=== PATIENT | male | born 1945 | race Caucasian/White ===

== ENCOUNTER 2022-04-22 14:12 | Observation (INO) | payer MEDICARE, SELFPAY ==
[2022-04-22] VITALS (21 sets, daily range): BP systolic 69–126; BP diastolic 42–90; PULSE 46–73; RESP 10–21; TEMP 36.3–36.4; O2SAT 87–99; BMI 33.2
--- NOTE | 2022-04-22 14:19 | W.ED.COVID ---
HPI - COVID General: Chief Complaint: Shortness of Breath/Dyspnea Stated Complaint: RESPIRATORY DISTRESS/ COVID + Time Seen by Provider: 04/22/22 14:19 Source: patient Mode of arrival: ambulatory Limitations: no limitations Triage information: Has fever, cough or shortness of breath. Exposure to COVID + person last 14 days History of Present Illness: 76 yo male with complaints of dyspnea, recently tested positive at assisted living for COVID-19. He had a positive antigen test yesterday or unsure of exactly when his symptoms started EMS reports that on arrival there they had noted he had an O2 sat of 87% and moderately altered mental status. He is lethargic as well. He is bradycardic they did give him 0.5 of atropine did increase his heart rate and only minimal increase in blood pressure patient is poorly responsive and cannot really give much further history beyond what EMS gave us. complaint: known COVID positive COVID 19 common symptoms: positive fever(s), chills, cough, dyspnea, fatigue and body aches COVID Results: SARS-CoV-2 (PCR) Detected (NOT DETECT) A 04/22/22 14:46 Coronavirus Type 229E (PCR) Not detected (NOT DETECT) 04/22/22 14:46 Review of Systems General: Reports: ROS unobtainable due to medical condition (Limited mostly from EMS and [facility] staff) Const: Reports: fever(s), chills, body aches and fatigue Resp: Reports: dyspnea [facility] ED PFSH: Medical History Atrial fibrillation CAD (coronary artery disease) CHF (congestive heart failure) Chronic migraine COPD (chronic obstructive pulmonary disease) oxygen dependent Dementia with behavioral disturbance HTN (hypertension) Hyperlipidemia Surgical History S/P ablation of atrial fibrillation S/P coronary angioplasty Social History Smoking and tobacco status: never smoked Physical Exam HENMT: COMMON NORMALS: normocephalic and atraumatic HEAD & SCALP: normocephalic and atraumatic Resp: COMMON NORMALS: No retractions AUSCULTATION: rales and wheezes Cardio: COMMON NORMALS: No murmurs present (Cardio) RATE: bradycardic RHYTHM: abnormal rhythm irregularly irregular GI: COMMON NORMALS: Soft to palpation and No hepatosplenomegaly present AUSCULTATION: Yes normoactive bowel sounds PALPATION: Yes Soft to palpation, No Tenderness to palpation present (GI), No Guarding due to palpation present (GI) and Yes No hepatosplenomegaly present Extremity: COMMON NORMALS: normal to inspection, capillary refill normal, no clubbing, cyanosis or edema, no calf tenderness and no pedal edema Skin: COMMON NORMALS: no rashes or lesions noted GENERAL SKIN EXAM: no rashes or lesions noted Course Vital Signs: Vital signs: Vital Signs Temperature 97.6 F 04/23/22 08:00 Pulse Rate 70 04/23/22 08:00 Respiratory Rate 18 04/23/22 08:00 Blood Pressure 102/68 04/23/22 08:00 Pulse Oximetry 95 04/23/22 08:00 Oxygen Delivery Me thod 04/23/22 08:00 Oxygen Flow Rate 2 04/23/22 07:48 MDM - COVID Medical Decision Making Hypotensive bradycardic. Patient does have COVID requiring oxygen support. He will require close monitoring in hospital setting for oxygen support start remdesivir and dexamethasone discussed with hospitalist orders written Lab Data : 04/22/22 15:55 04/23/22 04:20 Radiology Impressions Chest X-Ray 04/22/22 14:28 IMPRESSION: No acute findings. Laboratory Results WBC 9.6 10^3/uL (4.0-10.0) 04/22/22 15:55 RBC 4.08 10^6/uL (4.1-5.3) L 04/22/22 15:55 Hgb 12.9 g/dL (11.7-16.6) 04/22/22 15:55 Hct 41.7 % (42.0-52.0) L 04/22/22 15:55 MCV 102.2 fl (80-94) H 04/22/22 15:55 MCH 31.6 pg (28.0-34.0) 04/22/22 15:55 MCHC 30.9 g/dL (30.0-36.0) 04/22/22 15:55 RDW 14.2 % (12.1-15.1) 04/22/22 15:55 Plt Count 184 10^3/cmm (130-400) 04/22/22 15:55 MPV 9.5 fL (7.4-10.4) 04/22/22 15:55 Neut % (Auto) 54.0 % 04/22/22 15:55 Lymph % (Auto) 18.3 % 04/22/22 15:55 [place] % (Auto) 25.0 % 04/22/22 15:55 Eos % (Auto) 1.6 % 04/22/22 15:55 Baso % (Auto) 0.4 % 04/22/22 15:55 Neut # (Auto) 5.15 10^3/uL (1.8-7.7) 04/22/22 15:55 Lymph # (Auto) 1.8 10^3/uL (0.8-4.8) 04/22/22 15:55 [place] # (Auto) 2.4 10^3/uL (0.2-0.9) H 04/22/22 15:55 Eos # (Auto) 0.2 10^3/uL (0.0-0.8) 04/22/22 15:55 Baso # (Auto) 0.0 10^3/uL (0.0-0.1) 04/22/22 15:55 Nucleated RBC % (auto) 0 % 04/22/22 15:55 Nucleated RBCs # 0.0 /100WBC 04/22/22 15:55 D-Dimer 2.16 ug/mIFEU (0-0.59) H 04/22/22 15:55 Specimen Type Arterial 04/22/22 14:34 Sample Site Brachial, left 04/22/22 14:34 ABG pH 7.34 (7.35-7.45) L 04/22/22 14:34 ABG pCO2 51.4 mmHg (35-45) H 04/22/22 14:34 ABG pO2 75.5 mmHg (80.0-100.0) L 04/22/22 14:34 ABG HCO3 27.8 mmol/L (22-26) H 04/22/22 14:34 ABG Base Excess 1.2 mmol/L (-2.0-2.0) 04/22/22 14:34 Dominik Test Pos 04/22/22 14:34 Hematocrit 40.0 % (42-52) L 04/22/22 14:34 O2 Delivery Device Nc 04/22/22 14:34 O2 Liters/Min 2.0 % 04/22/22 14:34 FiO2 28.0 % 04/22/22 14:34 Can Striper ID Bd 04/22/22 14:34 Sodium 139 mmol/L (136-145) 04/22/22 15:55 Potassium 4.3 mmol/L (3.5-5.1) 04/22/22 15:55 Chloride 103 mmol/L (98-107) 04/22/22 15:55 Carbon Dioxide 27 mmol/L (22-29) 04/22/22 15:55 Anion Gap 13.3 (5-19) 04/22/22 15:55 BUN 18 mg/dL (8-23) 04/22/22 15:55 Creatinine 2.1 mg/dL (0.7-1.2) H 04/22/22 15:55 GFR Calculation Not Reportable 04/22/22 15:55 Glucose 113 mg/dL (65-115) 04/22/22 15:55 Calculated Osmolality 291 mOsm/kg (285-295) 04/22/22 15:55 Lactic Acid 1.6 mmol/L (0.5-2.2) 04/22/22 15:55 Calcium 8.0 mg/dL (8.5-10.5) L 04/22/22 15:55 Total Bilirubin 0.4 mg/dL (0.15-1.2) 04/22/22 15:55 AST 15 U/L (0-40) 04/22/22 15:55 ALT 8 U/L (0-41) 04/22/22 15:55 Alkaline Phosphatase 149 U/L (40-130) H 04/22/22 15:55 Troponin T Baseline 28 ng/L (0-15) H 04/22/22 15:24 NT-Pro-B Natriuret Pep 159 pg/mL (0-450) 04/22/22 15:55 Total Protein 6.8 g/dL (6.6-8.7) 04/22/22 15:55 Albumin 3.3 g/dL (3.5-5.2) L 04/22/22 15:55 Globulin 3.5 g/dL (1.3-4.6) 04/22/22 15:55 Coronavirus 229E (PCR) Not detected (NOT DETECT) 04/22/22 14:46 SARS-CoV-2 (PCR) Detected (NOT DETECT) A 04/22/22 14:46 SARS-CoV-2 (PCR) Detected (NOT DETECT) A 04/22/22 14:46 Coronavirus Type 229E (PCR) Not detected (NOT DETECT) 04/22/22 14:46 Discharge Plan Discharge Patient Disposition: Admitted As Inpatient Admit Provider: Eric Nelson Clinical Impression: COVID, Dementia, COPD (chronic obstructive pulmonary disease), Hypotension, Bradycardia Condition: Stable Coding Level of Care Code ED Pattern Illustrator for Kenna Edge
--- NOTE | 2022-04-22 14:28 | XRR_ITS ---
PROCEDURE INFORMATION: Exam: XR Chest Exam date and time: 04/22/2022 2:49 PM Age: 76 years old Clinical indication: Dyspnea; Additional info: Dysonea/hypoxia TECHNIQUE: Imaging protocol: Radiologic exam of the chest. Views: 1 view. COMPARISON: No relevant prior studies available. FINDINGS: Lungs: Unremarkable. No consolidation. Pleural spaces: Unremarkable. No pleural effusion. No pneumothorax. Heart/Mediastinum: Unremarkable. No cardiomegaly. Bones/joints: Unremarkable. XR/XR chest 1V portable [id number] IMPRESSION: No acute findings.
--- NOTE | 2022-04-22 14:29 | ECG_ITS ---
[facility] Test Date: 2022-04-22 Pat Name: Juan Persaud Department: Room: Gender: Male Hand Spring Former: : 1945 Requested By: Trevon Santamaria Order Number: [id number] Wilfrid MD: Saray Escobar M.D. Measurements Intervals [place] Rate: 50 P: 36 GA: 189 QRS: -3 QRSD: 105 T: 29 QT: 465 QTc: 427 Interpretive Statements SINUS BRADYCARDIA LOW QRS VOLTAGE IN PRECORDIAL LEADS [QRS DEFLECTION < 1.0 mV IN CHEST LEADS] POSSIBLE ANTERIOR MYOCARDIAL INFARCTION , PROBABLY OLD [30 ms Q WAVE IN V3/V4, OR R < 0.2 mV IN V4] No previous ECG available for comparison Electronically Signed On 04-22-2022 17:52:28 CDT by Saray Escobar M.D. [id number]
[2022-04-22 14:45] LABS: ABG PCO2 51.4 mmHg (35-45); ABG PH Result 7.34 (7.35-7.45); Base Excess ABG 1.2 mmol/L (-2.0-2.0); Blood Gas Allen Test Pos; Blood Gas Operator Identificat BD; Blood Gas Sample Site Brachial, left; Blood Gas Sample Type Arterial; HCO3 ABG 27.8 mmol/L (22-26); Oxygen Device NC; PO2 ABG 75.5 mmHg (80.0-100.0)
[2022-04-22] MEDS: sodium chloride 0.9% 1,000 ML 999 ML IV (14:47)
[2022-04-22] MEDS: albuterol 8 gm MDI 2 PUFF INHALATION (14:51)
[2022-04-22 16:03] LABS: Troponin(5th) Baseline 28 ng/L (0-15)
[2022-04-22 16:07] LABS: Basophils % 0.4 %; Eosinophils # 0.2 10^3/uL (0.0-0.8); Eosinophils % 1.6 %; Hematocrit 41.7 % (42.0-52.0); Hemoglobin 12.9 g/dL (11.7-16.6); Lymphocytes # 1.8 10^3/uL (0.8-4.8); Lymphocytes % 18.3 %; Mean Corpuscular HGB Conc 30.9 g/dL (30.0-36.0); Mean Corpuscular Hemoglobin 31.6 pg (28.0-34.0); Mean Corpuscular Volume 102.2 fl (80-94); Mean Platelet Volume 9.5 fL (7.4-10.4); Monocytes # 2.4 10^3/uL (0.2-0.9); Neutrophils # 5.15 10^3/uL (1.8-7.7); Nucleated Red Blood Cells % 0 %; Platelet Count 184 10^3/cmm (130-400); Red Blood Count 4.08 10^6/uL (4.1-5.3); Red Cell Distribution Width 14.2 % (12.1-15.1); White Blood Count 9.6 10^3/uL (4.0-10.0)
[2022-04-22 16:21] LABS: D Dimer 2.16 ug/mIFEU (0-0.59)
[2022-04-22 16:24] LABS: Lactic Sepsis W/Reflex 1.6 mmol/L (0.5-2.2)
--- NOTE | 2022-04-22 16:29 | ECG_ITS ---
[facility] Test Date: 2022-04-22 Pat Name: Juan Persaud Department: Room: Gender: Male Cutting Inspector: : 1945 Requested By: Trevon Santamaria Order Number: [id number] Wilfrid MD: Saray Escobar M.D. Measurements Intervals [place] Rate: 50 P: 56 TN: 186 QRS: 6 QRSD: 102 T: 30 QT: 465 QTc: 425 Interpretive Statements SINUS BRADYCARDIA LOW QRS VOLTAGE [QRS DEFLECTION < 0.5/1.0 mV IN LIMB/CHEST LEADS] Compared to ECG 04/22/2022 14:37:59 Myocardial infarct finding no longer present Electronically Signed On 04-22-2022 18:14:12 CDT by Saray Escobar M.D. [id number]
[2022-04-22 16:39] LABS: Alanine Aminotransferase 8 U/L (0-41); Albumin Level 3.3 g/dL (3.5-5.2); Alkaline Phosphatase 149 U/L (40-130); Anion Gap 13.3 (5-19); Aspartate Amino Transferase 15 U/L (0-40); Blood Urea Nitrogen 18 mg/dL (8-23); Carbon Dioxide 27 mmol/L (22-29); Chloride 103 mmol/L (98-107); Globulin 3.5 g/dL (1.3-4.6); Glucose 113 mg/dL (65-115); NT Pro B Type Natriuretic Pept 159 pg/mL (0-450); Osmolality Calculated 291 mOsm/kg (285-295); Potassium 4.3 mmol/L (3.5-5.1); Sodium 139 mmol/L (136-145); Total Bilirubin 0.4 mg/dL (0.15-1.2); Total Protein 6.8 g/dL (6.6-8.7)
[2022-04-22 16:40] LABS: Adenovirus Not Detected (NOT DETECT); Chlamydia Pneumoniae Not Detected (NOT DETECT); Coronavirus 229E,HKU1,NL63,OC4 Not Detected (NOT DETECT); Human Metapneumovirus Not Detected (NOT DETECT); Human Rhinovirus/Enterovirus Not Detected (NOT DETECT); Influenza A Not Detected (NOT DETECT); Influenza A H1 Not Detected (NOT DETECT); Influenza A H1-2009 Not Detected (NOT DETECT); Influenza A H3 Not Detected (NOT DETECT); Influenza B Not Detected (NOT DETECT); Mycoplasma Pneumoniae Not Detected (NOT DETECT); Parainfluenza Virus Type 1 Not Detected (NOT DETECT); Parainfluenza Virus Type 2 Not Detected (NOT DETECT); Parainfluenza Virus Type 3 Not Detected (NOT DETECT); Parainfluenza Virus Type 4 Not Detected (NOT DETECT); Respiratory Syncytial Virus A Not Detected (NOT DETECT); Respiratory Syncytial Virus B Not Detected (NOT DETECT); SARS-COV-2 Detected (NOT DETECT)
[2022-04-22] MEDS: dexamethasone 10 mg/mL INJ 6 MG IVP (16:56)
[2022-04-22] MEDS: sodium chloride 0.9% 500 ML 999 ML IV (16:56)
[2022-04-22] MEDS: remdesivir 200 MG in sodium chloride 0.9% (100 ml) 60 ML 100 MG IV (17:56)
--- NOTE | 2022-04-22 18:28 | P.HP_ITS ---
Providers/Chief Complaint Admitting Physician: Omar Primary Care Provider: Ximena Wagner MD Chief Complaint: RESPIRATORY DISTRESS/ COVID + History of Present Illness Juan Persaud is a 76 year old male patient presents from [facility]. He is unable to give me a history. Per the transfer report patient was slow to respond with a blood pressure of 100/70 and change in cognitive status. Patient has a history of hypertension hyperlipidemia, migraine, CAD status post CABG, COPD oxygen dependent, heart failure, hypokalemia, major depression, dementia with behavioral disturbance. Presents from [facility]. [facility] also performed a COVID test which was positive on 04/19/2022. He was managed as an outpatient for the last few days, until today with the hypotension and change in mental status. Review of Systems General: Reports: ROS unobtainable due to mental status Medications/Allergies Home Medications Medication Instructions Recorded Confirmed Last Taken Type acetaminophen 500 mg tablet 500 mg PO Q6H PRN Pain 07/23/20 04/22/22 Unknown History (Tylenol Extra Strength) amlodipine 10 mg tablet 10 mg PO DAILY 07/23/20 04/22/22 04/21/22 History aspirin 81 mg tablet,delayed 81 mg PO DAILY 07/23/20 04/22/22 04/21/22 History release (Adult Low Dose Aspirin) carvedilol 12.5 mg tablet 18.75 mg PO BID #270 tabs 07/23/20 04/22/22 04/21/22 Rx escitalopram oxalate 10 mg tablet 10 mg PO DAILY 07/23/20 04/22/22 04/21/22 History folic acid 1 mg tablet 2 mg PO DAILY 07/23/20 04/22/22 04/21/22 History furosemide 40 mg tablet 40 mg PO DAILY #90 tabs 07/23/20 04/22/22 04/21/22 Rx ipratropium 0.5 mg-albuterol 3 mg 3 ml inhalation Q6H PRN Shortness 07/23/20 04/22/22 04/21/22 History (2.5 mg base)/3 mL nebulization Of Breath soln lisinopril 20 mg tablet 20 mg PO DAILY 07/23/20 04/22/22 04/21/22 History loratadine 10 mg tablet (Allergy 10 mg PO DAILY 11/04/22/22 04/21/22 History Relief (loratadine)) memantine 5 mg tablet 5 mg PO QAM 07/23/20 04/22/22 04/21/22 History potassium chloride 20 mEq 20 meq PO DAILY #90 tabs 07/23/20 04/22/22 04/21/22 Rx tablet,extended release risperidone 0.25 mg tablet 0.25 mg PO BID 07/23/20 04/22/22 04/21/22 History atorvastatin 40 mg tablet 40 mg PO DAILY 11/28/21 04/22/22 04/21/22 History budesonide-formoterol HFA 80 2 puff inhalation Q12H 11/28/21 04/22/22 04/21/22 History mcg-4.5 mcg/actuation aerosol inhaler (Symbicort) cyclobenzaprine 10 mg tablet 10 mg PO TID 11/28/21 04/22/22 04/21/22 History diclofenac sodium 1 % topical gel 2 g topical QID PRN Pain 11/28/21 04/22/22 Unknown History (Arthritis Pain (diclofenac)) tamsulosin 0.4 mg capsule 0.4 mg PO DAILY 11/28/21 04/22/22 04/21/22 History tramadol 50 mg tablet 50 mg PO BID PRN Pain 11/28/21 04/22/22 Unknown History albuterol sulfate 90 mcg/actuation 1 puff inhalation QID PRN 04/22/22 04/22/22 Unknown History aerosol inhaler Shortness Of Breath donepezil 10 mg tablet 10 mg PO DAILY 04/22/22 04/22/22 04/21/22 History Allergies Allergy/AdvReac Type Severity Reaction Status Date / Time Tetanus Vaccines and Toxoid Allergy Unknown Unknown Verified 04/22/22 15:09 PFSH Acute PFSH: Medical History (Updated 04/22/22 @ 18:50 by Eric Nelson DO) Atrial fibrillation CAD (coronary artery disease) CHF (congestive heart failure) Chronic migraine COPD (chronic obstructive pulmonary disease) oxygen dependent Dementia with behavioral disturbance HTN (hypertension) Hyperlipidemia Surgical History S/P ablation of atrial fibrillation S/P coronary angioplasty Social History Smoking and tobacco status: never smoked Vitals/I&O/Wt Last Vital Signs Pulse 59 L 04/22/22 18:00 Resp 18 04/22/22 18:00 BP 126/90 04/22/22 18:00 Pulse Ox 93 04/22/22 18:00 O2 Del Method 04/22/22 14:57 O2 Flow Rate 2 04/22/22 14:57 04/22/22 04/22/22 04/22/22 06:59 14:59 22:59 Intake Total 1100 / 1100 Balance 1100 / 1100 Weight last 48 hrs Weight 111.13 kg Physical Exam Narrative: Patient seen in the ED. He had scooted down on the bed with his legs hanging off. I did help him with his repositioning. He appears in no ac [place] distress. He appears elderly and acutely ill. HENMT: COMMON NORMALS: normocephalic, moist oral mucous membranes and oropharynx normal Eye: GENERAL EYE: appearance normal, both eyes and all related structures Lymph: OTHER: No lymphadenopathy noted Chest: CHEST: Yes Symmetrical chest wall rise Resp: COMMON NORMALS: normal respiratory effort and No use of accessory muscles OTHER: Diminished breath sounds throughout. No wheezes rales or rhonchi Cardio: OTHER: Heart regular rate and rhythm normal S1-S2 without murmurs clicks gallops or rubs GI: OTHER: Abdomen soft nontender nondistended positive bowel sounds no hepatosplenomegaly Back/Pelvis: OTHER: No significant scoliosis. No CVA tenderness. Extremity: NARRATIVE EXTREMITY EXAM: Mild bilateral pedal edema. No edema above the ankles. Neuro: OTHER: Patient is alert. He is not oriented to time he does know where he is. And he knows his name. He does not know why he is here. Patient moves all extremities, he is nonfocal. Psych: OTHER: Patient is calm, will follow directions. Attention and concentration are diminished Skin: NARRATIVE SKIN EXAM: No rashes or lesions noted Data : 04/22/22 15:55 04/22/22 15:55 Micro: Microbiology 04/22/22 15:45 Blood Culture - Preliminary Blood SPECIMEN COLLECTED 04/22/22 15:20 Blood Culture - Preliminary Blood SPECIMEN COLLECTED CXR: My impression: Lungs clear without infiltrate Radiologist's impression: FINDINGS: Lungs: Unremarkable. No consolidation. Pleural spaces: Unremarkable. No pleural effusion. No pneumothorax. Heart/Mediastinum: Unremarkable. No cardiomegaly. Bones/joints: Unremarkable. EKG 1: My Interpretation: sinus bradycardia Bisque Kiln Drawer Interpretation: SINUS BRADYCARDIA LOW QRS VOLTAGE IN PRECORDIAL LEADS? [QRS DEFLECTION < 1.0 mV IN CHEST LEADS] POSSIBLE ANTERIOR MYOCARDIAL INFARCTION , PROBABLY OLD [30 ms Q WAVE IN V3/V4, OR R < 0.2 mV IN V4] EKG computer-generated impression: Chest X-Ray 04/22/22 14:28 IMPRESSION: No acute findings. EKG 2: My Interpretation: sinus sandrita Bisque Kiln Drawer Interpretation: SINUS BRADYCARDIA LOW QRS VOLTAGE? [QRS DEFLECTION < 0.5/1.0 mV IN LIMB/CHEST LEADS] Compared to ECG 04/22/2022 14:37:59 Myocardial infarct finding no longer present EKG computer-generated impression: Chest X-Ray 04/22/22 14:28 IMPRESSION: No acute findings. A&P Assessment and plan (1) COVID: Patient with first positive COVID test 04/19/2022. Our PCR is positive here in the ED. She was started on remdesivir and Decadron. We will follow exp ectantly. Status: Acute (2) Hypotension: Patient's blood pressure has stabilized. Will hold multiple home medications for hypertension. Status: Acute (3) JOSÉ MIGUEL (acute kidney injury): Serum creatinine is 2.1. With a normal BUN. I do not have old records this without a comparison I do not know if this is his normal. We will follow expectantly Status: Acute (4) HTN (hypertension): Admitted with hypotension. We will hold home medications and reevaluate. Status: Acute Qualifiers: Hypertension type: essential hypertension Qualified Code(s): I10 - Essential (primary) hypertension (5) COPD (chronic obstructive pulmonary disease): Patient with chronic respiratory failure on oxygen at home. We will continue and monitor expectantly Status: Acute (6) Dementia: Patient taking risperidone for behavioral disturbances. We will continue while admitted. Also continue Aricept and Lexapro. Status: Acute (7) Bradycardia: EKG reveals sinus bradycardia. Apparently patient received 1 dose of atropine by EMS Status: Acute (8) CHF (congestive heart failure): Patient is status post CABG and angioplasty. Status: Acute Qualifiers: Heart failure type: systolic Heart failure chronicity: chronic Qualified Code(s): I50.22 - Chronic systolic (congestive) heart failure (9) DNR (do not resuscitate): Received document from [facility]. Dated 03/28 Status: Acute Plan Place on observation, start usual COVID treatments and follow expectantly. Attestations Medical Necessity Statement*: Pt in obs with COVID. Patient may improved before 2 [place] Coding Level of Care Code Acute Nutrition Technician for g Fwd Diagnoses COVID U07.1 Hypotension I95.9 JOSÉ MIGUEL (acute kidney injury) N17.9 HTN (hypertension) I10 Hypertension type: essential hypertension COPD (chronic obstructive pulmonary disease) J44.9 Dementia F03.90 Bradycardia R00.1 CHF (congestive heart failure) I50.22 Heart failure type: systolic Heart failure chronicity: chronic DNR (do not resuscitate) Z66
[2022-04-22] MEDS: D5-NS 0.45% + KCL 20 mEq 20 MEQ/1,000 ML BAG 75 MEQ IV (18:54)
[2022-04-22] MEDS: enoxaparin 40 mg/0.4 mL Syringe SUBCUT (18:54)
[2022-04-22 18:57] LABS: Troponin 5 2HR 24.79 ng/L (0-15)
[2022-04-22 19:01] LABS: Troponin 5 2HR Delta -3.21 ABS# (0-10)
--- NOTE | 2022-04-22 19:23 | PC.NURSE ---
Report from CHEVY Stubbs. Pt resting quietly. NAD. Pt is alert to name and place only at this time. Somewhat knows his birthday. Follows commands. IV to RAC patent. Flushed with saline flush. No needs at this time.
--- NOTE | 2022-04-22 20:29 | ECG_ITS ---
[facility] Test Date: 2022-04-22 Pat Name: Juan Persaud Department: Room: 273 Gender: Male Bpm Solution Architect: : 1945 Requested By: Trevon Santamaria Order Number: [id number] Wilfrid MD: Jayy Gonzalez M.D. Measurements Intervals [place] Rate: 60 P: 85 MO: 190 QRS: -2 QRSD: 97 T: 24 QT: 409 QTc: 411 Interpretive Statements SINUS RHYTHM WITH OCCASIONAL SUPRAVENTRICULAR PREMATURE COMPLEXES LOW QRS VOLTAGE [QRS DEFLECTION < 0.5/1.0 mV IN LIMB/CHEST LEADS] POSSIBLE ANTERIOR MYOCARDIAL INFARCTION , PROBABLY OLD [30 ms Q WAVE IN V3/V4, OR R < 0.2 mV IN V4] Compared to ECG 04/22/2022 17:00:23 Myocardial infarct finding now present Sinus bradycardia no longer present Electronically Signed On 04-23-2022 17:21:19 CDT by Jayy Gonzalez M.D. [id number]
[2022-04-22] MEDS: cyclobenzaprine 10 mg Tablet PO (23:02)
[2022-04-22] MEDS: atorvastatin 40 mg Tablet PO (23:03)
[2022-04-22] MEDS: sodium chloride 0.9% 1,000 ML 100 ML IV (23:03)
[2022-04-23] VITALS (11 sets, daily range): BP systolic 102–124; BP diastolic 61–77; PULSE 64–80; RESP 10–18; TEMP 36.4–36.9; O2SAT 92–97
[2022-04-23 04:56] LABS: Blood Urea Nitrogen 19 mg/dL (8-23); Calcium 8.1 mg/dL (8.5-10.5); Carbon Dioxide 26 mmol/L (22-29); Chloride 104 mmol/L (98-107); Glucose 138 mg/dL (65-115); Magnesium 1.8 mg/dL (1.7-2.3); Osmolality Calculated 290 mOsm/kg (285-295); Sodium 138 mmol/L (136-145)
[2022-04-23 05:05] LABS: Anion Gap 12.7 (5-19); Potassium 4.7 mmol/L (3.5-5.1)
[2022-04-23 05:18] LABS: Troponin 5 6HR 16.57 ng/L (0-15)
[2022-04-23] MEDS: memantine 5 mg tablet PO (05:57)
--- NOTE | 2022-04-23 09:00 | PC.NURSE ---
Allergy bracelet applied.
[2022-04-23] MEDS: sodium chloride 0.9% 1,000 ML 100 ML IV (09:03)
[2022-04-23] MEDS: folic acid 1 mg Tablet 2 MG PO (09:04)
[2022-04-23] MEDS: tamsulosin 0.4 mg Capsule PO (09:04)
[2022-04-23] MEDS: cyclobenzaprine 10 mg Tablet PO ×3 (09:04→21:43)
[2022-04-23] MEDS: docusate sodium 100 mg Capsule PO (09:04)
[2022-04-23] MEDS: donepezil 5 MG Tablet 10 MG PO (09:05)
[2022-04-23] MEDS: aspirin 81 mg EC Tablet PO (09:05)
[2022-04-23] MEDS: escitalopram 10 mg Tablet PO (09:05)
--- NOTE | 2022-04-23 10:00 | PC.NURSE ---
zoology technical officer Ciarra charger nurse notified this nurse bradycardia on the 30 s noted. Read monitor strip, bradycardia not noted on strip. Heart rate of 80. Cardiac strip posted in paper charting.
[2022-04-23] MEDS: risperiDONE 0.25 mg Tablet PO ×2 (10:42→17:51)
--- NOTE | 2022-04-23 13:03 | PC.NURSE ---
Attempted to return, daughter's phone call at [facility], call not going thorugh. Request for her to call back message left.
[2022-04-23] MEDS: enoxaparin 40 mg/0.4 mL Syringe SUBCUT (17:51)
[2022-04-23] MEDS: TRAMadol 50 mg Tablet PO (17:55)
--- NOTE | 2022-04-23 18:15 | PM.PN ---
Subjective Subjective: Patient is awake he is alert and interactive. He is confused and shows signs of moderate dementia with severe memory loss. He denies shortness of breath or chest pain. rubber compounder supervisor called the facility he is from and patient is back to baseline for mentation. Vitals/I&O/Wt Last Vital Signs Temp 97.7 F 04/23/22 11:33 Pulse 69 04/23/22 15:20 Resp 15 04/23/22 15:20 BP 118/74 04/23/22 15:20 Pulse Ox 94 04/23/22 15:20 O2 Del Method 04/23/22 15:20 O2 Flow Rate 2 04/23/22 08:00 04/23/22 04/23/22 04/23/22 06:59 14:59 22:59 Intake Total 2147.5 / 2147.5 120 / 2267.5 Balance 2147.5 / 2147.5 120 / 2267.5 Weight last 48 hrs Weight 111.13 kg Weight 111.13 kg Physical Exam Narrative: Patient is alert, cooperative with exam. He does have memory loss Neurologic moving all extremities equally. Reported by nurses that patient is walking and pulled out his IV. Heart regular normal S1-S2 without murmurs clicks gallops or rubs Lungs clear to auscultation without wheezes rales or rhonchi Abdomen soft nontender nondistended positive bowel sounds no hepatosplenomegaly Extremities no clubbing cyanosis or edema Data : 04/22/22 15:55 04/23/22 04:20 Micro: Microbiology 04/22/22 15:45 Blood Culture - Preliminary Blood NEGATIVE TO DATE 04/22/22 15:20 Blood Culture - Preliminary Blood NEGATIVE TO DATE A&P Assessment and plan (1) COVID: Patient with first positive COVID test 04/19/2022. Our PCR is positive here on 04/22/2022. Patient was given remdesivir and Decadron in the emergency room. Patient returned to baseline today. We will plan [facility] Status: Acute (2) Hypotension: Patient's blood pressure has stabilized. Hypotension could have led to altered mental status as well since COVID positivity seems to be a nonissue. Will continue to hold multiple home medications for hypertension. I will assess tomorrow what medications could and should be reinstituted. Status: Acute (3) JOSÉ MIGUEL (acute kidney injury): Initial serum creatinine was 2.1 with a normal BUN. Today creatinine is 1.2. The original creatinine was likely false. Status: Acute (4) HTN (hypertension): Admitted with hypotension. Resolved with fluids and off home medications Status: Acute Qualifiers: Hypertension type: essential hypertension Qualified Code(s): I10 - Essential (primary) hypertension (5) COPD (chronic obstructive pulmonary disease): Patient with chronic respiratory failure on oxygen at home. I was told the patient wears oxygen at home however his oxygenation status is normal on room air. Status: Acute (6) Dementia: Patient taking risperidone for behavioral disturbances. We will continue while admitted. Also continue Aricept and Lexapro. Status: Acute (7) Bradycardia: EKG reveals sinus bradycardia. Heart rate improved off carvedilol. Will likely not resume carvedilol at this dosing. Status: Acute (8) CHF (congestive heart failure): Patient is status post CABG and angioplasty. Status: Acute Qualifiers: Heart failure type: systolic Heart failure chronicity: chronic Qualified Code(s): I50.22 - Chronic systolic (congestive) heart failure (9) DNR (do not resuscitate): Received document from [facility]. Dated 03/28 Status: Acute Plan DC back to [place] tomorrow Attestations Medical Necessity Statement*: Pt in obs with COVID. Patient may improved before 2 [place] Coding Level of Care Code Acute Service Or Work Dispatcher for [facility] Fwd Diagnoses COVID U07.1 Hypotension I95.9 JOSÉ MIGUEL (acute kidney injury) N17.9 HTN (hypertension) I10 Hypertension type: essential hypertension COPD (chronic obstructive pulmonary disease) J44.9 Dementia F03.90 Bradycardia R00.1 CHF (congestive heart failure) I50.22 Heart failure type: systolic Heart failure chronicity: chronic DNR (do not resuscitate) Z66
--- NOTE | 2022-04-23 18:18 | PC.NURSE ---
Shift Note: Pt alert to self. He follows safety directions part of the time. No shortness of breath or other breathing difficulties today. He started the day on 2lpm/NC , now on room air. Afebrile. Pt complains of pain in his lower back and occasionally leg. He received Tramadol for pain today. He has Flexeril scheduled. Cardiac monitoring was discontinued. Last check he was in sinus rhythm. Towards the end of the shift he got out of bed by himself to use restroom. Upon staff entering room, blood all over bathroom, bed, floor and Pt was holding pressure on his right forearm stating he had cut himself. His Right AC Iv laying on the floor. Bathing and cleaning up provided. IVs and IVF discontinued. Pt has mostly been incontinent of urine today, he has made a few attempts to use BSC at bedside. BM today. Frequent safety and comfort rounds continue. Orders and/or nursing care completed as indicated. Patient monitored for response to intervention and treatment(s). Education provided includes Lovenox, tramadol, risperadal. Patient verbalizes understanding of plan of care and medications then immediately asks for another explanation. Re-enforcement needed. Will continue to monitor.
[2022-04-23] MEDS: atorvastatin 40 mg Tablet PO (21:43)
[2022-04-23] MEDS: HYDROcodone-acetaminophen 5-325 mg Tablet 1 TAB PO (21:45)
[2022-04-24] VITALS (7 sets, daily range): BP systolic 120–165; BP diastolic 83–98; PULSE 64–79; RESP 14–21; TEMP 35.9–36.8; O2SAT 93–98
[2022-04-24] MEDS: HYDROcodone-acetaminophen 5-325 mg Tablet 1 TAB PO (03:53)
[2022-04-24] MEDS: memantine 5 mg tablet PO (05:41)
--- NOTE | 2022-04-24 09:19 | PM.DCS ---
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 Hospital Course Hospital Course After initial hydration and stopping his antihypertensives, he returned to his baseline status per the [facility]. I am not certain that COVID played a part in his admission. I think he had a change in mental status because of the hypotension. He also had bradycardia. Thus I will decrease his Coreg by more than half. Also decrease the lisinopril by half. We will continue the Lasix as previous. Due to the patient's dementia with severe memory problems I would consider and I did stop Ultram also cyclobenzaprine as these can affect cognitive status. Lastly, I stopped atorvastatin given patient's dementia and prognosis not indicated at this time. Patient has had a normal pulse ox there is no abnormality in the lungs on chest x-ray or examination. He is stable for discharge back to [facility] Physical Exam Narrative: Patient is alert, cooperative with exam. He does have memory loss Neurologic moving all extremities equally. Reported by nurses that patient is walking independently Heart regular normal S1-S2 without murmurs clicks gallops or rubs Lungs clear to auscultation without wheezes rales or rhonchi Abdomen soft nontender nondistended positive bowel sounds no hepatosplenomegaly Extremities no clubbing cyanosis or edema Discharge Data Studies Completed and Pending Completed Studies During Hospitalization Category Date Time Status XR chest 1V portable [id number] Stat Exams 04/22/22 14:28 Completed Pending at discharge Category Date Time Status Blood Culture Stat Lab 04/22/22 15:45 Results Radiology Impressions Chest X-Ray 04/22/22 14:28 IMPRESSION: No acute findings. Laboratory Results WBC 9.6 10^3/uL (4.0-10.0) 04/22/22 15:55 RBC 4.08 10^6/uL (4.1-5.3) L 04/22/22 15:55 Hgb 12.9 g/dL (11.7-16.6) 04/22/22 15:55 Hct 41.7 % (42.0-52.0) L 04/22/22 15:55 MCV 102.2 fl (80-94) H 04/22/22 15:55 MCH 31.6 pg (28.0-34.0) 04/22/22 15:55 MCHC 30.9 g/dL (30.0-36.0) 04/22/22 15:55 RDW 14.2 % (12.1-15.1) 04/22/22 15:55 Plt Count 184 10^3/cmm (130-400) 04/22/22 15:55 MPV 9.5 fL (7.4-10.4) 04/22/22 15:55 Neut % (Auto) 54.0 % 04/22/22 15:55 Lymph % (Auto) 18.3 % 04/22/22 15:55 Jefferson % (Auto) 25.0 % 04/22/22 15:55 Eos % (Auto) 1.6 % 04/22/22 15:55 Baso % (Auto) 0.4 % 04/22/22 15:55 Neut # (Auto) 5.15 10^3/uL (1.8-7.7) 04/22/22 15:55 Lymph # (Auto) 1.8 10^3/uL (0.8-4.8) 04/22/22 15:55 Jefferson # (Auto) 2.4 10^3/uL (0.2-0.9) H 04/22/22 15:55 Eos # (Auto) 0.2 10^3/uL (0.0-0.8) 04/22/22 15:55 Baso # (Auto) 0.0 10^3/uL (0.0-0.1) 04/22/22 15:55 Nucleated RBC % (auto) 0 % 04/22/22 15:55 Nucleated RBCs # 0.0 /100WBC 04/22/22 15:55 D-Dimer 2.16 ug/mIFEU (0-0.59) H 04/22/22 15:55 Specimen Type Arterial 04/22/22 14:34 Sample Site Brachial, left 04/22/22 14:34 ABG pH 7.34 (7.35-7.45) L 04/22/22 14:34 ABG pCO2 51.4 mmHg (35-45) H 04/22/22 14:34 ABG pO2 75.5 mmHg (80.0-100.0) L 04/22/22 14:34 ABG HCO3 27.8 mmol/L (22-26) H 04/22/22 14:34 ABG Base Excess 1.2 mmol/L (-2.0-2.0) 04/22/22 14:34 Dominik Test Pos 04/22/22 14:34 Hematocrit 40.0 % (42-52) L 04/22/22 14:34 O2 Delivery Device Nc 04/22/22 14:34 O2 Liters/Min 2.0 % 04/22/22 14:34 FiO2 28.0 % 04/22/22 14:34 Bottle Labeler ID Bd 04/22/22 14:34 Sodium 138 mmol/L (136-145) 04/23/22 04:20 Potassium 4.7 mmol/L (3.5-5.1) 04/23/22 04:20 Chloride 104 mmol/L (98-107) 04/23/22 04:20 Carbon Dioxide 26 mmol/L (22-29) 04/23/22 04:20 Anion Gap 12.7 (5-19) 04/23/22 04:20 BUN 19 mg/dL (8-23) 04/23/22 04:20 Creatinine 1.2 mg/dL (0.7-1.2) 04/23/22 04:20 GFR Calculation Not Reportable 04/23/22 04:20 Glucose 138 mg/dL (65-115) H 04/23/22 04:20 Calculated Osmolality 290 mOsm/kg (285-295) 04/23/22 04:20 Lactic Acid 1.6 mmol/L (0.5-2.2) 04/22/22 15:55 Calcium 8.1 mg/dL (8.5-10.5) L 04/23/22 04:20 Magnesium 1.8 mg/dL (1.7-2.3) 04/23/22 04:20 Total Bilirubin 0.4 mg/dL (0.15-1.2) 04/22/22 15:55 AST 15 U/L (0-40) 04/22/22 15:55 ALT 8 U/L (0-41) 04/22/22 15:55 Alkaline Phosphatase 149 U/L (40-130) H 04/22/22 15:55 Troponin T Baseline 28 ng/L (0-15) H 04/22/22 15:24 Troponin T 120 Minute 24.79 ng/L (0-15) H 04/22/22 17:35 Delta Troponin T -3.21 ABS# (0-10) L 04/22/22 17:35 Troponin T Hi Sens 6Hr 16.57 ng/L (0-15) H 04/23/22 04:20 Troponin T Hi Sens 6Hr Delta -11.43 ng/L (0-12) L 04/23/22 04:20 NT-Pro-B Natriuret Pep 159 pg/mL (0-450) 04/22/22 15:55 Total Protein 6.8 g/dL (6.6-8.7) 04/22/22 15:55 Albumin 3.3 g/dL (3.5-5.2) L 04/22/22 15:55 Globulin 3.5 g/dL (1.3-4.6) 04/22/22 15:55 Coronavirus 229E (PCR) Not detected (NOT DETECT) 04/22/22 14:46 SARS-CoV-2 (PCR) Detected (NOT DETECT) A 04/22/22 14:46 Vitals Last Vital Signs Temp 98.3 F 04/24/22 08:00 Pulse 79 04/24/22 08:00 Resp 17 04/24/22 08:00 BP 165/83 04/24/22 08:00 Pulse Ox 98 04/24/22 08:00 O2 Del Method 04/24/22 08:00 O2 Flow Rate 2 04/23/22 08:00 Discharge Plan Discharge Patient Disposition: Home Condition: Stable Prescriptions: Continued ipratropium-albuterol 0.5 mg-3 mg(2.5 mg base)/3 mL solution for nebulization 3 ml inhalation Q6H PRN (Reason: Shortness Of Breath) acetaminophen [Tylenol Extra Strength] 500 mg tablet 500 mg PO Q6H PRN (Reason: Pain) memantine 5 mg tablet 5 mg PO QAM risperidone 0.25 mg tablet 0.25 mg PO BID amlodipine 10 mg tablet 10 mg PO DAILY aspirin [Adult Low Dose Aspirin] 81 mg tablet,delayed release (DR/EC) 81 mg PO DAILY escitalopram oxalate 10 mg tablet 10 mg PO DAILY folic acid 1 mg tablet 2 mg PO DAILY loratadine [Allergy Relief (loratadine)] 10 mg tablet 10 mg PO DAILY furosemide 40 mg tablet 40 mg PO DAILY Qty: 90 3RF potassium chloride 20 mEq tablet extended release 20 meq PO DAILY Qty: 90 3RF cyclobenzaprine 10 mg tablet 10 mg PO TID diclofenac sodium [Arthritis Pain (diclofenac)] 1 % gel 2 g topical QID PRN (Reason: Pain) Rx Instructions: apply to single elbow, wrist or hand; for hand includes palm/fingers/back of hand tamsulosin 0.4 mg capsule 0.4 mg PO DAILY budesonide-formoterol [Symbicort] 80-4.5 mcg/actuation HFA aerosol inhaler 2 puff inhalation Q12H donepezil 10 mg Tablet 10 mg PO DAILY albuterol sulfate 90 mcg/actuation Hfa Aerosol Inhaler 1 puff INHALATION QID PRN (Reason: Shortness Of Breath) Changed lisinopril 20 mg tablet 10 mg PO DAILY Qty: 30 0RF carvedilol 12.5 mg tablet 6.25 mg PO BID Qty: 270 3RF Rx Instructions: must administer with a meal/food Discontinued atorvastatin 40 mg tablet 40 mg PO DAILY tramadol 50 mg tablet 50 mg PO BID PRN (Reason: Pain) Discharge Orders: Discharge Order (Routine); Ordered 04/24/22 Ordered By: Eric Cronnell Referrals: Ximena Wagner MD [Primary Care Provider] - Discharge Diet: Usual diet Discharge Activity: Increase activity as tolerated Discharge Attestations Time Spent in Discharge Care*: less than 30 min Quality Metrics Clinical Quality Measures [ No reported AMI, CVA or VTE this stay] Coding Level of Care Code Acute Chg FW DC note Diagnoses COVID U07.1 Hypotension I95.9 JOSÉ MIGUEL (acute kidney injury) N17.9 HTN (hypertension) I10 Hypertension type: essential hypertension COPD (chronic obstructive pulmonary disease) J44.9 Dementia F03.90 Bradycardia R00.1 CHF (congestive heart failure) I50.22 Heart failure type: systolic Heart failure chronicity: chronic DNR (do not resuscitate) Z66
[2022-04-24] MEDS: donepezil 5 MG Tablet 10 MG PO (09:43)
[2022-04-24] MEDS: tamsulosin 0.4 mg Capsule PO (09:43)
[2022-04-24] MEDS: folic acid 1 mg Tablet 2 MG PO (09:43)
[2022-04-24] MEDS: escitalopram 10 mg Tablet PO (09:43)
[2022-04-24] MEDS: docusate sodium 100 mg Capsule PO (09:43)
[2022-04-24] MEDS: aspirin 81 mg EC Tablet PO (09:44)
[2022-04-24] MEDS: cyclobenzaprine 10 mg Tablet PO (09:44)
== END 2022-04-24 15:35 | disposition home or self-care (01) ==
LOC: ER 17:20 → MEDSURG 19:10
PROVIDERS: Admitting Provider Internal Medicine; Emergency Provider Family Medicine; PCP Family Medicine; Visit Provider Internal Medicine
DX: U07.1 COVID-19 (principal); I95.9 Hypotension, unspecified; N17.9 Acute kidney failure, unspecified; J44.9 Chronic obstructive pulmonary disease, unspecified; F03.90 Unspecified dementia, unspecified severity, without behavioral disturbance, psychotic disturbance, mood disturbance, and anxiety; R00.1 Bradycardia, unspecified; I11.0 Hypertensive heart disease with heart failure; I50.22 Chronic systolic (congestive) heart failure; Z66 Do not resuscitate; Z79.82 Long term (current) use of aspirin; I25.10 Atherosclerotic heart disease of native coronary artery without angina pectoris; E78.5 Hyperlipidemia, unspecified; Z95.1 Presence of aortocoronary bypass graft
CPT/HCPCS: 36415; 36600; 71045; 80048; 80053; 82803; 83605; 83735; 83880; 84484; 85025; 85378; 87040; 87635; 93005; 94640; 94664; 96365; 96372; 96375; 99285; G0378; J1100; J1650; J3535; J7030; J7040